=== PATIENT | female | born 1995 | race Caucasian/White ===

== ENCOUNTER 2016-08-28 01:10 | Emergency (ER) | payer MEDICAID, OTHER ==
[~2016-08-28] VITALS: Ht 157.5 cm; Wt 65.0 kg
[~2016-08-28 01:10] MED LIST: IBUP400T22 PO
[2016-08-28 01:39] VITALS: Ht 157.5 cm; Wt 65.0 kg
[2016-08-28] MEDS ORDERED: IBUP-1542 PO (03:44)
[2016-08-28] MEDS ORDERED: ACET500C5 PO (03:44)
[2016-08-28] MEDS ORDERED: AMO500 PO (03:44)
--- NOTE | 2016-08-28 03:50 | ERD ---
ER Documentation Chief Complaint Date/Time DATE: 08/28/16 TIME: 03:46 Chief Complaint Sore throat HPI There is a 20-year-old female who presents to the emergency department today with her mother for complaints of sore throat for the past 3-4 days. Patient states that she felt chilled and that she had a fever yesterday. Patient states that her lymph node on her left side is swollen. Denies any cough, nausea or vomiting. ROS All systems reviewed and are negative except as per history of present illness. Medications Home Meds Active Scripts Acetaminophen* (Tylophen*) 500 Mg Capsule, 1 CAP PO Q6H Y for PAIN AND OR ELEVATED TEMP, #30 CAP Prov:BARBARA MELCHOR PA-C 08/28/16 Ibuprofen* (Motrin*) 600 Mg Tab, 600 MG PO Q6, #30 TAB Prov:BARBARA MELCHOR PA-C 08/28/16 Amoxicillin* (Amoxicillin*) 500 Mg Cap, 500 MG PO TID for 10 Days, CAP Prov:BARBARA MELCHOR PA-C 08/28/16 Reported Medications Ibuprofen* (Ibuprofen*) 400 Mg Tablet, 400 MG PO Q6H 05/19/11 Allergies Allergies: Coded Allergies: No Known Allergy (Unverified , 05/19/11) PMhx/Soc Medical and Surgical Hx: pt denies Medical Hx, pt denies Surgical Hx History of Surgery: No Anesthesia Reaction: No Hx Neurological Disorder: No Hx Respiratory Disorders: No Hx Cardiac Disorders: No Hx Psychiatric Problems: No Hx Miscellaneous Medical Probl: No Hx Alcohol Use: No Hx Substance Use: No Hx Tobacco Use: No Smoking Status: Never smoker Physical Exam Vitals Vital Signs Date Time Temp Pulse Resp B/P Pulse Ox O2 Delivery O2 Flow Rate FiO2 08/28/16 01:39 98.3 87 18 124/73 98 Physical Exam Const: Pleasant, no acute Head: Atraumatic Eyes: Normal Conjunctiva ENT: Ears TMs normal. Nose no drainage. Throat with mild erythema and tonsillar swelling. No evidence of exudate. Left-sided tender submandibular lymphadenopathy. Neck: Full range of motion..~ No meningismus. Resp: Clear to auscultation bilaterally Cardio: Regular rate and rhythm, no murmurs Abd: Soft, non tender, non distended. Normal bowel sounds Skin: No petechiae or rashes Neur: Awake and alert Psych: Normal Mood and Affect Procedures/MDM This is a 20-year-old female who presents to the emergency department today complaining of sore throat for the past 3-4 days. On physical exam patient did have some tonsillar swelling as well as some tender lymphadenopathy on her left side. There was no evidence of exudate however I will treat the patient for possible strep pharyngitis at this time. She is afebrile and otherwise well- appearing. I did also consider mononucleosis as patient is a sophomore in college and indicated that other roommates have been sick. I did explain to the mother that I could test her for mono at this time however patient is only here for a couple of days for the long weekend and then will be returning to [facility]. I have explained to the mother that should the child break out in rash it is possible that it is mono not an allergic reaction to the amoxicillin. Mother understood. I have low suspicion for peritonsillar abscess, retropharyngeal abscess, otitis media, PNA, sinusitis, abscess, meningitis, sepsis, or other acute infectious bacterial process. She was given Motrin here in the emergency department. I will give her prescription for Motrin and Tylenol for home as well as amoxicillin At this time the patient is stable for discharge and outpatient management. They should follow up with their PCP in the next 1-2. They may return to the emergency department sooner if symptoms persist or worsen. Patient and mother understood and agreed with the plan. I discussed the patient with Dr. Reinoso and he is in agreement with the plan. Departure Diagnosis: Primary Impression: Sore throat Condition: Fair Patient Instructions: Pharyngitis, Strep (Presumed) Referrals: JEFERSON BUSCH (PCP) Additional Instructions: Call your primary care doctor TOMORROW for an appointment during the next 1-2 days.See the doctor sooner or return here if your condition worsens before your appointment time. Take amoxicillin as prescribed Take Tylenol or Motrin for pain or fever BARBARA MELCHOR PA-C Aug 28, 2016 03:50
[2016-08-28] MEDS ORDERED: IBUPROFEN 800 MG TAB PO ONE (04:00)
[2016-08-28 04:03] VITALS: BP 118/78; PULSE 78; RESP 18; TEMP 98.2
== END 2016-08-28 04:04 | disposition home or self-care (01) ==
LOC: FTE 01:10
DX: J02.9 Acute pharyngitis, unspecified (principal)
CPT/HCPCS: Z7502; Z7610; 99283